=== PATIENT | female | born 1930 | race Caucasian/White ===

== ENCOUNTER → 2016-07-13 | Outpatient (CLI) | payer OTHER ==
[~2016-07-13] MED LIST: ALPRAZOLAM PO; ATENOLOL PO; BENEDRYL; CALCIUM 500 +1 EAC2 PO; DAKIN'S MODIF1000 ML TOP; DYAZIDE 37.5/251 CAP PO; FERREX 150 PLU1 EACH PO; FISH OIL 1,0001 CAP PO; FISH OIL 1,0001 EAC3 PO; HYDROCHLOROTH12.5 MG PO; HYDROCODON-ACE1 EAC7 PO; K-DUR20 ME2; LAX STOOL SOFT1 EACH PO; MIRALAX119 GM PO; MULTI-VITAMIN1 EAC1 PO; NON-ASPIRIN PA325 M1 PO; SANTYL30 GM; VIT B-12 PO; VIT E PO
--- NOTE | ~2016-07-13 | CO ---
Unit #: [id number] #: [id number] Patient: KELLY AGUILAR [id number] [address] [place], [place] [address] [id number] MR#: [id number] NAME: KELLY AGUILAR ROOM: Age: 85 Sex: F Admission Date: 07/13/2016 : 1930 Attending Physician: Moshe Callahan M.D. Primary Care Physician: Nahomi Redman M.D. Requesting Physician: Moshe Callahan M.D. Consultation Date: 07/13/2016 CONSULTATION REPORT REASON FOR CONSULTATION Preoperative clearance. Date of surgery is 07/17/2016 at 1300 hours. HISTORY OF PRESENT ILLNESS The patient is a pleasant, not very mobile, 85-year-old female who basically has had a history of hypertension, anxiety and some questionable abnormal stress test back in July 2008 when ejection fraction was 81%. She recently had a fall when she sustained a right hip fracture where she had a gamma nail procedure done under general anesthesia which was uneventful. She tolerated that procedure very well and was subsequently discharged to rehab. She has currently been scheduled for a right total hip arthroplasty by Dr. Callahan. She denies any chest pain, headache, shortness of breath or difficulty breathing. She states that she really has no issues with her rehab so far except for some decubitus area. Her bilateral lower extremities are usually swollen from edema. She denies any PND or orthopnea. Denies any chest pain or chest pain associated with breathlessness. She denies any cough as well. PAST MEDICAL HISTORY 1. Hypertension. 2. Anxiety. 3. Recent fall with recent hip fracture. PAST SURGICAL HISTORY Right hip gamma nail for intertrochanteric hip fracture. HOME MEDICATIONS Include: 1. Atenolol 25 mg p.o. daily. 2. Fish oil 1000 mg p.o. daily. 3. Multivitamin one tablet p.o. daily. 4. Ferrex 150 mg p.o. daily. 5. Hydrochlorothiazide 12.5 mg p.o. daily. 6. Vitamin B12 1000 mcg tablet p.o. daily. 7. Potassium chloride 20 mEq p.o. daily. 8. MiraLAX 17 grams in 8 ounces of water as needed. 9. ProMod liquid protein. 10. Os-Royal 500 mg with vitamin D one tablet p.o. b.i.d. 11. Santyl ointment to the affected skin. 12. Dakin's 0.1 to 5% solution to affected skin. 13. Tylenol 325 mg p.o. q.6 h. p.r.n. as needed. 14. Xanax 0.25 mg p.o. b.i.d. as needed for anxiety. 15. Senokot S one tablet p.o. b.i.d. for constipation. 16. Hydrocodone/acetaminophen 5/325 one tablet p.o. q.4 h. as needed for Unit #: [id number] #: [id number] Patient: KELLY AGUILAR pain. ALLERGIES 1. Sulfa. 2. Ampicillin. 3. Cefoxitin. SOCIAL HISTORY Patient is a lifelong nonsmoker. Denies any alcohol or use of illicit drugs. Patient currently resides in [facility] in a [facility] facility. FAMILY HISTORY Significant for mother with history of cancer and father with a history of heart disease, hypertension, and hyperlipidemia. Father of a myocardial infarction at age 69 and brother of a myocardial infarction at age 59. Mother lived to be 88. REVIEW OF SYSTEMS A complete 10-point review of systems has been done and pertinent positives noted. PHYSICAL EXAMINATION VITAL SIGNS: Blood pressure 132/78, pulse 71, respiratory rate 20, temperature 97.9, saturating 97% on room air. GENERAL: She was comfortable, not in distress. EYES: Pupils were equal and react to light and accommodation. NECK: Supple without thyromegaly. LUNGS: Clear to auscultation bilaterally. No dyspnea. HEART: Regular rate and rhythm, S1, S2 only. ABDOMEN: Full, moves with respirations, soft. Normal bowel sounds. EXTREMITIES: Bilateral lower extremity edema noted. Bilateral extremity wraps in place. Decreased range of motion, however, there is pedal edema like 2+ bilaterally. NEUROLOGIC: She was alert and oriented x3. Moves all limbs spontaneously. Cranial nerves II-XII are grossly intact. PSYCHIATRIC: Did not seem to be responding to external stimuli. SKIN: Warm and dry. She has an open area on her buttocks as previously described per nursing staff as to area of decubitus ulcer for which she is applying Santyl. DIAGNOSTIC STUDIES LABORATORY: CBC with WBC of 5.6, hemoglobin 11.5, hematocrit 35.9, platelet count 262. Urinalysis was essentially negative with 1+ urobilinogen. PT/INR 11.2 and 1.1. Chemistry with sodium 134, potassium 3.8, chloride 98, bicarb 28, glucose 109, creatinine 0.5, AST 27, ALT 12, alkaline phosphatase 110, albumin 2.4. IMAGING: Chest x-ray dated 05/25/2016 showed emphysematous changes. Questionable 7th and 8th rib fracture. CARDIOVASCULAR: 2D echo in May 2016 with [facility]. After it was reviewed, she was cleared for surgery. This was read by Dr. Peña and there was no evidence of pericardial effusion and the left ventricular systolic function was read as normal and the visually estimated ejection fraction was 50% to 55%. There was mild mitral regurgitation present. Mild tricuspid regurgitation present. She had surgery under general anesthesia on 05/25/2016. Unit #: [id number] #: [id number] Patient: KELLY AGUILAR EKG date 05/25/2016 showed normal sinus rhythm. Normal EKG. ASSESSMENT AND PLAN 1. Preoperative clearance for right total hip arthroplasty. Considering risks and benefits of having this procedure at this time and patient's stable state, especially as she successfully underwent general anesthesia back in May which in of itself constitutes some degree of cardiac stress testing for which she tolerated very well. I will go ahead and clear patient for surgery. Will avoid large volume shifts. She is already on a beta jennifer which would definitely help optimize her cardiac status. I believe patient, at this point, is at optimal status to undergo surgery and the benefits outweigh the risks at this time. 2. Hypertension. Blood pressure has been noted. 3. Emphysematous changes noted on chest x-ray. Clinically patient is stable at this time. Should there be any perioperative issues, she may require oxygen supplementation perioperatively. 4. Decubitus ulcer. This will be managed very closely. Dr. Callahan, thank you for the opportunity to participate in the care of your patient. Will be happy to follow patient perioperatively at your behest. Dictated by... Laura High M.D. Jade TD: 07/13/2016 21:12 JOB #: [id number] CONSULTATION REPORT Page 1 of 1 X Laura High MD CONSULTATION REPORT
[2016-07-13 14:27] LABS: URINE APPEARANCE TURBID; URINE BILIRUBIN NEG (NEG); URINE BLOOD NEG (NEG); URINE COLOR DK YELLOW; URINE GLUCOSE NEG (NEG); URINE KETONE NEG (NEG); URINE LEUKOCYTE ESTERASE NEG (NEG); URINE NITRATE NEG (NEG); URINE PROTEIN NEG (NEG); URINE SPECIFIC GRAVITY 1.022 (1.003-1.035)
[2016-07-13 14:32] LABS: HEMATOCRIT 35.9 % (35.0-45.0); HEMOGLOBIN 11.5 gm/dL (12.0-16.0); MEAN CELL VOLUME 94.4 FL (83-96); MEAN CORPUSCULAR HEMOGLOBIN 30.2 PG (28-34); MEAN PLATELET VOLUME 8.2 FL (6.5-11.5); RED BLOOD COUNT 3.81 X10e (3.90-5.30); RED CELL DISTRIBUTION WIDTH 18.1 % (11.0-15.5); WHITE BLOOD COUNT 5.6 X10e3 (4.0-10.5)
[2016-07-13 14:36] LABS: CULTURE INDICATED? NO
[2016-07-13 14:52] LABS: INR 1.1; PROTHROMBIN TIME (PATIENT) 11.2 SECONDS (9.6-11.5)
[2016-07-13 15:03] LABS: ALBUMIN SERUM 2.4 g/dL (3.5-5.0); BILIRUBIN,TOTAL 0.7 mg/dL (0.2-2.0); CALCIUM SERUM 8.7 mg/dL (8.4-10.2); CREATININE SERUM 0.5 mg/dL (0.6-1.4); GLOM FILT RATE Estimated 87.6 mL/min (>60); POTASSIUM 3.8 mmol/L (3.5-5.1); PROTEIN TOTAL SERUM 6.2 g/dL (6.0-8.3)
== END | disposition home or self-care (01) ==
LOC: CAMB 13:37
PROVIDERS: Orthopaedic Surgery
DX: Z01.812 Encounter for preprocedural laboratory examination (principal); T84.090A Other mechanical complication of internal right hip prosthesis, initial encounter; Z88.0 Allergy status to penicillin; Z88.2 Allergy status to sulfonamides; Z88.1 Allergy status to other antibiotic agents; Z96.641 Presence of right artificial hip joint
CPT/HCPCS: 36415; 80053; 81003; 85027; 85610; 86850; 86900; 86901; 87070

== ENCOUNTER 2016-07-17 11:02 | Inpatient (IN) | payer OTHER ==
--- NOTE | ~2016-07-17 | OR ---
Unit #: [id number] #: [id number] Patient: KELLY AGUILAR [id number] [facility]. [place], [place] [address] [id number] MR#: [id number] NAME: KELLY AGUILAR ROOM: [facility] Date of Procedure: 07/17/2016 Admission Date: 07/17/2016 Surgeon: Moshe Callahan M.D. : 1930 Attending Physician: Moshe Callahan M.D. Referring Physician: Moshe Callahan M.D. Primary Care Physician: Nahomi Redman M.D. OPERATIVE REPORT PREOPERATIVE DIAGNOSIS Failed gamma nail, right hip. POSTOPERATIVE DIAGNOSIS Failed gamma nail, right hip. PROCEDURE PERFORMED Conversion gamma nail to total hip. ASSISTANTS Eladia Zapata and Rashaad Hilliard. ANESTHESIA General. ESTIMATED BLOOD LOSS About 300. DESCRIPTION OF PROCEDURE The patient was brought to the operating room, given a 1 g of vancomycin. This will be continued postop, but discontinued within 23 hours from the start time of surgery. She was then given a general anesthetic and placed in decubitus position with the right side up. Right hip was prepped and draped in a sterile fashion. After this was done, a small incision was made distally and the distal locking screw was removed. After this was done, then the proximal incision was made. The subcutaneous dissected away and the fascia split longitudinally. After the fascia split longitudinally, we were able to identify the tip of the gamma nail in the greater trochanter and the locking screw was removed from the inside the nail. We identified the lag screw on the lateral side of the femur and placed the insertion device on this and we were able to back the screw out. We then removed the gamma nail. A posterior approach was carried out to the hip. The leg was internally rotated. The hip was dislocated and the neck was cut using an oscillating saw. The head fragment and part of neck were removed. The femur was retracted anteriorly. There was a large groove cut in the acetabulum from the lag screw. So, we elected to do a total hip The labrum was debrided. The acetabulum was reamed up to a 49 and then a Manisha hemispherical titanium cup with 3 screw holes was positioned in 40 degrees of abduction and 20 degrees of forward flexion. We then drilled and placed one 35 mm 6 size screw, a trial 36 liner was positioned in the cup. The starter reamer was passed down and then the broaches were used for the Omnifit head and neck stem. Unit #: [id number] #: [id number] Patient: KELLY AGUILAR We broached up to a size 5. We could not get size [address] With the size [address], the 30 mm neck and 0, 36 head gave appropriate stability. The hip and leg lengths appeared to be appropriate. We removed all the trials. acetabular material for postop analgesia. Real liner was impacted into the cup. The canal was brushed, plugged, irrigated, and dried. Two packages of cement were mixed. Five Omnifit stem was cemented into 20 degrees of anteversion. After the cement was hardened, it was judged that 0, 36 head was the appropriate length, so this was opened and applied to the stem. The hip was reduced with the hip skid and stability was appropriate in all directions. The patient then had the wound irrigated with Betadine. The rest of ropivacaine mixture was injected. The capsule was repaired with 0 Ethibond. The fascia was closed with a running #1 Stratafix suture. The subcutaneous was closed with 0 and 2-0 Vicryl and barbara in the skin. The distal incision was closed with 0 Ethibond, 0 Vicryl, and barbara as well. We did remove the large fragment of cement that it extruded through the distal locking screw hole prior to closure. Sterile dressing applied. Abduction pillow positioned. The patient's general anesthetic was reversed. Blood loss about 300 mL. special education teaching assistant, Eladia Zapata was present throughout the entire case. Dictated by... Crystal Sam/castro TD: 07/18/2016 00:01 JOB #: [id number] OPERATIVE REPORT Page 1 of 1 X Moshe Callahan MD X PROCEDURE OPERATIVE NOTE
--- NOTE | ~2016-07-17 | DS ---
Unit #: [id number] #: [id number] Patient: KELLY AGUILAR [id number] [facility]. [place], [place] [address] [id number] MR#: [id number] NAME: KELLY AGUILAR ROOM: 453 Age: 85 Sex: F Admission Date: 07/17/2016 : 1930 Discharge Date: 07/20/2016 Attending Physician: Moshe Callahan M.D. Referring Physician: Moshe Callahan M.D. Primary Care Physician: Nahomi Redman M.D. DISCHARGE SUMMARY ADMITTING DIAGNOSIS Right hip failed gamma nail. DISCHARGE DIAGNOSIS Right hip failed gamma nail. HOSPITAL COURSE On 07/17/2016 the Ms. Aguilar underwent a removal of a right hip gamma nail and conversion to a right total hip replacement. 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 The patient tolerated the procedure well. She was transported to the fourth floor. She underwent physical therapy, medical management and anticoagulation therapy. She is doing well and is ready to be discharged. CONDITION UPON DISCHARGE Stable. DISPOSITION Discharge to the [facility] rehab in [facility]. MEDICATIONS Medications include routine home meds, in addition to Coumadin, which is currently being held for a high INR, and [place] 10/325. FOLLOW-UP AND INSTRUCTIONS 1. Ms. Aguilar is going to be discharged to rehab. 2. The patient is on Coumadin for DVT prophylaxis. She will need another PT/INR in the morning. Please call those results to our office, and we will dose her Coumadin appropriately. 3. Physical therapy is to be done for ambulation and dislocation precautions. 4. The patient's skin barbara should be discontinued 2 weeks postop. Please apply Steri-Strips 1/4 of an inch apart. 5. White VAUGHN hose are to be worn during the day and can be removed in the evening. 6. The patient can shower in [address] after seen by Dr. Callahan after her 6 week postop appointment. 7. Physical therapy is to be done for the next 4 weeks. 8. Followup appointment with Dr. Callahan is in 6 weeks. Please call our office for that appointment date and time. Dictated by... Unit #: [id number] #: [id number] Patient: KELLY AGUILAR P.A.C. JEF/bob TD: 07/20/2016 11:21 JOB #: [id number] DISCHARGE SUMMARY Page 1 of 1 X Eladia Zapata DISCHARGE SUMMARY
--- NOTE | ~2016-07-17 | A ---
[facility] Nutrition Therapy DATE: 07/18/16 Patient: KELLY AGUILAR Physician: SHANNA Address: [address] [place] [address] Room/Bed: [address] [place] [address], Zip: [place] [address] Admit Date: 07/17/16 Date of : [birth year] Height: 5 0 Weight: 81 37 NUTRITIONAL ASSESSMENT: REASON: Low BMI 85 yo female admitted for failed gamma nail PMH: HTN, anxiety, R hip fracture Anthropometrics: Ht: 5'0" Wt: 36.8 kg (81#) BMI: 15.8 Labs: Na+ 134, Cl- 98, Creat 0.5, Alb 2.4, POC 128 Meds: Milk of magnesia, Zofran, Miralax, K I/O & Bowel function: 4000/402, last BM 07/17 Skin Integrity: Closed surgical site incision (R hip), pressure ulcer (coccyx) Estimated Nutrition Needs: Increased d/t low BMI, p/u Assessment: Chart reviewed, events noted. Per Archevos, pt had recent R hip fracture underwent surgery (gamma nail) and was d/c'd to rehab. Pt re-admitted for R total hip arthroplasty yesterday (07/17). Pt reported decreased appetite d/t not feeling well after surgery. Pt reported eating ~50% of breakfast and lunch today. Pt reported trying to eat as much as she can, but feels too full. Pt stated recent wt loss of unknown amount, and current weight at 115#. RD internet specialist encouraged adequate calorie and protein intake and recommended a supplement. Pt stated not liking Ensure shakes much, but will try one. Pt agreed to Magic Cup. See recommendations below. Dx: Inadequate protein-energy intake RT current clinical condition AEB recent wt loss, decreased appetite and PO intake. Intervention: 1. Ensure shakes 2. Magic cup 3. Regular diet Monitoring, Evaluation and Goals: 1. PO intake; consume >75% of meals and supplements 2. Weight; prevent unintentional weight loss, promote gradual weight gain 3. Labs; WNL [facility] Nutrition Therapy DATE: 07/18/16 Patient: KELLY AGUILAR Physician: SHANNA Address: [address] [place] [address] Room/Bed: [address] [place] [address], Zip: [place] [address] Admit Date: 07/17/16 Date of : [birth year] Height: 5 0 Weight: 81 37 Recommendations: 1. Please order Ensure Enlive shakes w/ lunch and vanilla magic cup w/ dinner daily. 2. Appreciate family and staff to encourage adequate calorie and protien intake. Pt is at a mild-moderate nutritional risk. RD will f/u per protocol. Respectfully, Marcella Steiner, Automotive Product Engineer Yenifer Blue, RD, LD Food and Nutritional Services [facility] cc: client file
--- NOTE | ~2016-07-17 | CR145 ---
[facility] A Service of [facility] RADIOLOGY TEXT RESULTS PATIENT: KELLY AGUILAR LOCATION: [facility] : [birth year] UNIT #: [id number] AGE: [address]: Moshe Callahan MD SEX: F ORDER DR: [id number] [facility] [address] [facility]. [place], [place] [address] [id number] MR#: [id number] Acc #: [id number] NAME: KELLY AGUILAR : 1930 SEX: F STUDY DATE/TIME: 07/17/2016 17:25 UNIT: [facility] ROOM: [facility] STUDY DESCRIPTION: CR Hip 1 View Rt Attending Physician: Moshe Callahan M.D. Referring Physician: Moshe Callahan M.D. Ordering Physician: Moshe Callahan M.D. Primary Care Physician: Nahomi Redman M.D. MEDICAL IMAGING REPORT This report is preliminary unless electronic signature is present EXAM Single view right hip HISTORY Postop right total hip arthroplasty right hip pain. Failed gamma nail COMPARISON 05/26/2016 FINDINGS Single AP view right hip demonstrates postoperative changes of a right total hip arthroplasty with a cemented femoral component and noncemented acetabular component with a single superiorly directed acetabular screw. Ossific fragment projects between the femur and acetabulum most likely represents a fragment from the lesser trochanter. Soft tissue swelling and lateral skin barbara noted consistent with recent operative intervention. Soft tissue gas noted. Generalized osteopenia. IMPRESSION Status post right total hip arthroplasty from apparent failed gamma nail fixation of the proximal right femur. Normal expected postoperative findings. Dictated by... Josue Pa M.D. THIS IS AN ELECTRONICALLY VERIFIED REPORT Josue Pa M.D. at 07/18/2016 10:59 PM SHIN/jeaneth [facility] A Service of [facility] RADIOLOGY TEXT RESULTS PATIENT: KELLY AGUILAR LOCATION: [facility] : 29 UNIT #: [id number] AGE: [address]: Moshe Callahan MD SEX: F ORDER DR: TD: 07/17/2016 22:50 JOB #: [id number] MEDICAL IMAGING REPORT Page 1 of 1 COPY
[2016-07-17 12:30] LABS: INR 1.1
[2016-07-18 03:01] LABS: BASOPHIL% 0.2 % (0-2.5); HEMOGLOBIN 9.5 gm/dL (12.0-16.0); LYMPHOCYTE# 0.6 X10e3 (1.0-3.5); LYMPHOCYTE% 8.7 % (17.0-45.0); MEAN CELL VOLUME 94.6 FL (83-96); MEAN CORPUSCULAR HGB CONC 31.8 g/dL (30-36); MEAN PLATELET VOLUME 8.2 FL (6.5-11.5); MONOCYTE# 0.4 X10e3 (0-1.0); MONOCYTE% 5.6 % (3.0-12.0); NEUTROPHIL# 5.8 X10e3 (1.5-7.1); NEUTROPHIL% 85.5 % (40-75); PLATELET COUNT 211 X10e3 (140-420); RED BLOOD COUNT 3.17 X10e (3.90-5.30); RED CELL DISTRIBUTION WIDTH 17.9 % (11.0-15.5); WHITE BLOOD COUNT 6.8 X10e3 (4.0-10.5)
[2016-07-18 03:06] LABS: DIFF IND NO
[2016-07-18 03:23] LABS: INR 1.6
[2016-07-18 10:00] LABS: HEMATOCRIT 31.1 % (35.0-45.0); HEMOGLOBIN 9.8 gm/dL (12.0-16.0)
[2016-07-19 03:46] LABS: BASOPHIL% 0.4 % (0-2.5); EOSINOPHIL% 0.2 % (0.0-7.0); HEMATOCRIT 26.6 % (35.0-45.0); HEMOGLOBIN 8.6 gm/dL (12.0-16.0); LYMPHOCYTE# 1.6 X10e3 (1.0-3.5); MEAN CELL VOLUME 94.4 FL (83-96); MEAN CORPUSCULAR HEMOGLOBIN 30.4 PG (28-34); MEAN CORPUSCULAR HGB CONC 32.2 g/dL (30-36); MEAN PLATELET VOLUME 7.9 FL (6.5-11.5); MONOCYTE# 0.9 X10e3 (0-1.0); MONOCYTE% 11.6 % (3.0-12.0); NEUTROPHIL# 5.6 X10e3 (1.5-7.1); NEUTROPHIL% 68.8 % (40-75); PLATELET COUNT 256 X10e3 (140-420); RED BLOOD COUNT 2.82 X10e (3.90-5.30); WHITE BLOOD COUNT 8.2 X10e3 (4.0-10.5)
[2016-07-19 03:47] LABS: DIFF IND NO
[2016-07-19 03:59] LABS: INR 3.6; PROTHROMBIN TIME (PATIENT) 39.8 SECONDS (9.6-11.5)
[2016-07-20 03:08] LABS: BASOPHIL% 0.5 % (0-2.5); DIFF IND NO; EOSINOPHIL% 0.6 % (0.0-7.0); HEMATOCRIT 26.1 % (35.0-45.0); HEMOGLOBIN 8.3 gm/dL (12.0-16.0); LYMPHOCYTE# 1.1 X10e3 (1.0-3.5); LYMPHOCYTE% 16.2 % (17.0-45.0); MEAN CELL VOLUME 94.4 FL (83-96); MEAN CORPUSCULAR HGB CONC 31.8 g/dL (30-36); MONOCYTE# 0.7 X10e3 (0-1.0); MONOCYTE% 10.3 % (3.0-12.0); NEUTROPHIL# 5.1 X10e3 (1.5-7.1); NEUTROPHIL% 72.4 % (40-75); PLATELET COUNT 254 X10e3 (140-420); RED BLOOD COUNT 2.77 X10e (3.90-5.30); RED CELL DISTRIBUTION WIDTH 18.5 % (11.0-15.5); WHITE BLOOD COUNT 7.1 X10e3 (4.0-10.5)
[2016-07-20 03:20] LABS: INR 4.3; PROTHROMBIN TIME (PATIENT) 47.7 SECONDS (9.6-11.5)
== END 2016-07-20 14:26 | DRG 470 ==
LOC: CSUR 11:02 → CPACUOF 14:00 → C4B 18:12
PROVIDERS: Orthopaedic Surgery; Physician Assistant
PROC: 0QP604Z Removal of Internal Fixation Device from Right Upper Femur, Open Approach (ICD-10-PCS; principal; 2016-07-17 13:00)
PROC: 0SR90J9 Replacement of Right Hip Joint with Synthetic Substitute, Cemented, Open Approach (ICD-10-PCS; 2016-07-17 13:00)
DX: T84.194A Other mechanical complication of internal fixation device of right femur, initial encounter (principal); I10 Essential (primary) hypertension; S72.141K Displaced intertrochanteric fracture of right femur, subsequent encounter for closed fracture with nonunion; Y79.8 Miscellaneous orthopedic devices associated with adverse incidents, not elsewhere classified; X58.XXXD Exposure to other specified factors, subsequent encounter; M81.0 Age-related osteoporosis without current pathological fracture; K21.9 Gastro-esophageal reflux disease without esophagitis; F41.9 Anxiety disorder, unspecified; Z87.440 Personal history of urinary (tract) infections; Z88.1 Allergy status to other antibiotic agents; Z88.0 Allergy status to penicillin; Z88.2 Allergy status to sulfonamides; Z82.49 Family history of ischemic heart disease and other diseases of the circulatory system; Z80.8 Family history of malignant neoplasm of other organs or systems
CPT/HCPCS: 73501; 82947; 85014; 85018; 85025; 85610; 88305; 88311; 94760; 97110; 97116; 97163; 97166; 97530; C1776; G8978-GP; G8979-GP; G8987-GO; G8988-GO; J0131; J0171; J0735; J1170; J1650; J1885; J2250; J2795; J3010; J3370